=== PATIENT | female | born 1955 ===

== ENCOUNTER → 2023-07-30 | Outpatient (CLI) | payer MEDICARE | END | disposition home or self-care (01) | LOC: LAB SHORT 09:22 → LAB 09:22 | DX: R30.0 Dysuria (principal); R35.0 Frequency of micturition; R31.9 Hematuria, unspecified | CPT/HCPCS: 87077; 87086; 87186 ==

== ENCOUNTER → 2024-12-18 | Outpatient (CLI) | payer MEDICARE | LOC: LAB 15:39 → LAB SHORT 15:39 | DX: L90.0 Lichen sclerosus et atrophicus (principal) | CPT/HCPCS: 88305 ==